=== PATIENT | female | born 1995 | race Caucasian/White ===

== ENCOUNTER 2016-05-20 17:01 | Emergency (ER) | payer OTHER ==
[2016-05-20] MEDS ORDERED: TDAP ADULT 0.5 ML INJ (BOOSTRIX) IM ONE (17:17)
--- NOTE | 2016-05-20 17:22 | EDPHY ---
H & P Time Seen by Provider: 05/20/16 17:11 HPI/ROS: CHIEF COMPLAINT: Dog bite right hand HISTORY OF PRESENT ILLNESS: 20-year-old female in the ER with mother via private vehicle complaining of dog bite to the dorsum of her right hand which occurred from a neighbor's domesticated dog. Animal control already contacted. No underlying osseous pain. No paresthesia. Tetanus out-of-date. Occurred shortly prior to arrival. PHYSICAL EXAM (Prior to examination, patient consented to physical exam, hands were washed and my usual and customary physical exam procedures followed) 1) GENERAL: Well-developed, well-nourished, alert and oriented. Appears to be in no acute distress. 2) HEAD: Normocephalic 3) HEENT: sclera anicteric 4) LUNGS: Breathing comfortably. 5) SKIN: right hand dorsal aspect overlying the 4th metacarpal superficial bite /abrasion with no signs of infection. Lymphangitic streaking. 6) MUSCULOSKELETAL: no underlying osseous pain. No shortening no malrotation. No extensor function defect Smoking Status: Never smoked Constitutional: Initial Vital Signs Temperature (C) 36.9 C 05/20/16 17:04 Heart Rate 56 L 05/20/16 17:04 Respiratory Rate 20 05/20/16 17:04 Blood Pressure 119/73 05/20/16 17:04 O2 Sat (%) 98 05/20/16 17:04 O2 Delivery Mode Room Air Allergies/Adverse Reactions: Penicillins Allergy (Verified 10/22/14 08:54) Home Medications: Medication Instructions Recorded Doxycycline Hyclate 100 mg PO BID #10 tablet 05/20/16 metroNIDAZOLE [Flagyl 500 mg (*)] 500 mg PO TID 5 Days 05/20/16 ED Images - Extremities Hands Back Left/Right: 1 - bite MDM/Departure - MDM ED Course/Re-evaluation: Tetanus updated, wound cleaned. Doubt osseous abnormality/injury. No signs of infection. Animal control contacted by nursing staff. She is penicillin allergic. Started on dual antibiotic therapy consisting of doxycycline plus Flagyl. Usual and customary wound precautions instructions provided. - Depart Disposition: Home, Routine, Self-Care Clinical Impression: Dog bite of right hand Qualifiers: Encounter type: initial encounter Qualified Code(s): S61.451A - Open bite of right hand, initial encounter Condition: Good Instructions: Animal Bite (ED) Additional Instructions: Return to the ER if you develop redness, swelling, discharge, warmth to the wound, red streaks going up your arm or any other symptoms that concern you. Prescriptions: Doxycycline Hyclate 100 mg PO BID #10 tablet metroNIDAZOLE [Flagyl 500 mg (*)] 500 mg PO TID 5 Days Referrals: Leroy Sinha MD [Primary Care Provider] - 2-3 days, call for appt.
[2016-05-20 17:38] VITALS: BP 130/94; PULSE 80; RESP 14; TEMP 97.9; O2SAT 94
== END 2016-05-20 17:39 | disposition home or self-care (01) ==
DX: S61.451A Open bite of right hand, initial encounter (principal); Z23 Encounter for immunization; W54.0XXA Bitten by dog, initial encounter